=== PATIENT | female | born 1960 | race Caucasian/White ===

== ENCOUNTER 2017-09-10 07:14 | Observation (INO) | payer MEDICAID, MEDICARE ==
[~2017-09-10] VITALS: Ht 172.7 cm; Wt 127.3 kg
[~2017-09-10 07:14] MED LIST: AMLO10TA2 PO; BUPR200T PO; CARB200T4 PO; CLON0.5T20 PO; FLUO20TA25 PO; VALS320T2 PO
[2017-09-10 08:13] LABS: BASOPHILS # (AUTO) 0.03 x10^3/uL (0-0.1); BASOPHILS % (AUTO) 0 % (0-1); EOSINOPHILS # (AUTO) 0.11 x10^3/uL (0-0.4); EOSINOPHILS % (AUTO) 1 % (1-7); LYMPHOCYTES # (AUTO) 0.48 x10^3/uL (1-3.4); LYMPHOCYTES % (AUTO) 5 % (22-44); MD NO; MEAN CORPUSCULAR HEMOGLOBIN 33.7 pg (27.0-34.8); MEAN CORPUSCULAR HGB CONC 33.8 g/dL (32.4-35.8); MEAN CORPUSCULAR VOLUME 99.6 fL (80-100); MEAN PLATELET VOLUME 7.8 fL (7.4-10.4); MONOCYTES # (AUTO) 0.52 x10^3/uL (0.2-0.8); MONOCYTES % (AUTO) 5 % (2-9); NEUTROPHILS % (AUTO) 88 % (42-75); PLATELET COUNT 332 x10^3/uL (130-400); RED BLOOD COUNT 4.36 x10^6/uL (3.82-5.3); RED CELL DISTRIBUTION WIDTH 12.8 % (9.6-15.2)
[2017-09-10 08:23] LABS: ALBUMIN 3.2 g/dL (3.4-5.0); ANION GAP 8 mmol/L (5-15); CALCIUM 8.2 mg/dL (8.5-10.1); CHLORIDE 108 mmol/L (98-107); CREATININE 0.76 mg/dL (0.55-1.02)
[2017-09-10 08:27] LABS: TROPONIN I < 0.015 ng/mL (0.000-0.045)
[2017-09-10] MEDS ORDERED: KETOROLAC 30 MG/1 ML IVPush ONE (08:30)
[2017-09-10] MEDS ORDERED: KETOROLAC 30 MG/1 ML ONE (08:46)
[2017-09-10] MEDS ORDERED: morphine SULFATE 10 MG/ML, 1ML IVPush ONE (09:00)
[2017-09-10] MEDS ORDERED: ONDANSETRON 2MG/ML, 2ML IVPush ONE (09:00)
[2017-09-10] MEDS ORDERED: ONDANSETRON 2MG/ML, 2ML ONE (09:12)
[2017-09-10] MEDS ORDERED: morphine SULFATE 10 MG/ML, 1ML ONE (09:15)
[2017-09-10] MEDS ORDERED: OMNIPAQUE 350 MG/ML, 150 ML BOTTLE ONE (09:48)
[2017-09-10] MEDS ORDERED: PROMETHAZINE 25 MG/ML, 1ML IM ONE (10:30)
[2017-09-10] MEDS ORDERED: ASPIRIN 325 MG TABLET PO ONE (10:30)
[2017-09-10] MEDS ORDERED: ASPIRIN 325 MG TABLET EC PO ONE (10:30)
[2017-09-10] MEDS ORDERED: PROMETHAZINE 25 MG/ML, 1ML ONE (10:54)
[2017-09-10] MEDS ORDERED: ASPIRIN 325 MG TABLET ONE (10:54)
[2017-09-10 11:43] VITALS: BP 124/82
[2017-09-10] MEDS ORDERED: POLYETHYLENE GLYCOL 17 GM PACKET PO PRN (12:00)
[2017-09-10] MEDS ORDERED: ENALAPRILAT 1.25 MG/ML, 2ML IVPush PRN (12:00)
[2017-09-10] MEDS: [UNRECOGNIZED DRUG - REMARK] MC SCH ×2 (12:00→14:43)
[2017-09-10] MEDS ORDERED: BISACODYL 10 MG SUPP PR PRN (12:00)
[2017-09-10] MEDS ORDERED: ONDANSETRON 2MG/ML, 2ML IVPush PRN (12:00)
[2017-09-10] MEDS ORDERED: TEMPLATE NON-FORMULARY MED. (Clonazepam** 0.5 MG) PO SCH (12:00)
[2017-09-10] MEDS ORDERED: NITROGLYCERIN 0.4 MG BOTTLE (25 TABS) SL PRN (12:00)
[2017-09-10] MEDS ORDERED: DOCUSATE 100 MG CAPSULE PO PRN (12:00)
[2017-09-10] MEDS ORDERED: ACETAMINOPHEN 325 MG TABLET PO PRN (12:00)
[2017-09-10] MEDS ORDERED: FLUT12AE INH (12:10)
[2017-09-10] MEDS ORDERED: FLUO60TA PO (12:10)
[2017-09-10] MEDS ORDERED: ALBU18HF INH (12:10)
[2017-09-10] MEDS ORDERED: CLON-364 PO (12:16)
[2017-09-10] MEDS: SODIUM CHLORIDE 0.9% 1,000 ML IV SCH ×2 (13:24→23:11)
[2017-09-10] MEDS: ENOXAPARIN 40 MG/0.4 ML SQ SCH (13:25)
[2017-09-10] MEDS: KETOROLAC 30 MG/1 ML IVPush PRN ×2 (13:25→18:24)
[2017-09-10] MEDS ORDERED: FLUOXETINE HCL 20 MG CAPSULE PO ONE (13:30)
[2017-09-10] MEDS ORDERED: CARBAMAZEPINE 200 MG TABLET PO ONE (13:30)
[2017-09-10] MEDS ORDERED: FLUTICASONE FUROATE 100MCG/INH INH PRN (13:30)
[2017-09-10] MEDS ORDERED: ALBUTEROL SULFATE 2.5 MG/3 ML NPPB PRN (13:30)
[2017-09-10] MEDS ORDERED: BUPROPION 100 MG TABLET PO ONE (13:30)
[2017-09-10 14:23] VITALS: BP 99/63
[2017-09-10 14:43] LABS: TROPONIN I < 0.015 ng/mL (0.000-0.045)
[2017-09-10 15:01] LABS: MICROSCOPIC NOT IND
[2017-09-10 15:10] LABS: RAPID INFLUENZA A Negative (Negative); RAPID INFLUENZA B Negative (Negative)
[2017-09-10 15:15] LABS: CULTURE INDICATED? NO
[2017-09-10 19:52] VITALS: BP 107/72
[2017-09-10] MEDS: CARBAMAZEPINE 200 MG TABLET PO SCH (20:07)
[2017-09-10] MEDS: BUPROPION 100 MG TABLET PO SCH (20:08)
[2017-09-10 20:17] LABS: TROPONIN I < 0.015 ng/mL (0.000-0.045)
[2017-09-11] MEDS: KETOROLAC 30 MG/1 ML IVPush PRN ×2 (01:13→08:25)
[2017-09-11 02:12] VITALS: BP 108/71
[2017-09-11] MEDS: [UNRECOGNIZED DRUG - REMARK] MC SCH ×2 (04:00→11:05)
[2017-09-11 05:09] LABS: BASOPHILS # (AUTO) 0.03 x10^3/uL (0-0.1); BASOPHILS % (AUTO) 1 % (0-1); EOSINOPHILS # (AUTO) 0.24 x10^3/uL (0-0.4); EOSINOPHILS % (AUTO) 6 % (1-7); LYMPHOCYTES # (AUTO) 0.69 x10^3/uL (1-3.4); LYMPHOCYTES % (AUTO) 17 % (22-44); MD NO; MEAN CORPUSCULAR HEMOGLOBIN 33.7 pg (27.0-34.8); MEAN CORPUSCULAR HGB CONC 33.8 g/dL (32.4-35.8); MEAN CORPUSCULAR VOLUME 99.7 fL (80-100); MEAN PLATELET VOLUME 7.7 fL (7.4-10.4); MONOCYTES # (AUTO) 0.63 x10^3/uL (0.2-0.8); MONOCYTES % (AUTO) 15 % (2-9); NEUTROPHILS # (AUTO) 2.57 x10^3/uL (1.8-6.8); NEUTROPHILS % (AUTO) 62 % (42-75); PLATELET COUNT 274 x10^3/uL (130-400); RED BLOOD COUNT 3.87 x10^6/uL (3.82-5.3); RED CELL DISTRIBUTION WIDTH 13.3 % (9.6-15.2)
[2017-09-11 05:19] LABS: ANION GAP 8 mmol/L (5-15); CALCIUM 7.9 mg/dL (8.5-10.1); CHLORIDE 108 mmol/L (98-107)
[2017-09-11 05:22] LABS: CHOL/HDL RATIO 2.1; CHOLESTEROL, TOTAL 167 mg/dL (140-239); CREATININE 0.89 mg/dL (0.55-1.02); HDL CHOL % 47 % (28-40); HDL CHOLESTEROL (DIRECT) 79 mg/dL (40-60); LDL CHOLESTEROL,CALCULATED 65 mg/dL (54-169); LDL/HDL RATIO 0.8 (0.5-3.0); TRIGLYCERIDES 116 mg/dL (50-200); VLDL CHOLESTEROL 23 mg/dL (0-25)
[2017-09-11] MEDS ORDERED: ASPIRIN 325 MG TABLET EC PO SCH (06:00)
[2017-09-11 07:39] VITALS: BP 113/77
[2017-09-11] MEDS: CARBAMAZEPINE 200 MG TABLET PO SCH (08:25)
[2017-09-11] MEDS: BUPROPION 100 MG TABLET PO SCH (08:25)
[2017-09-11] MEDS ORDERED: REGADENOSON 0.4 MG/5 ML SYRINGE ONE (08:47)
[2017-09-11] MEDS ORDERED: FLUOXETINE HCL 20 MG CAPSULE PO SCH (09:00)
[2017-09-11] MEDS ORDERED: VALSARTAN 320 MG TABLET PO SCH (09:00)
[2017-09-11] MEDS ORDERED: AMLODIPINE 5 MG TABLET PO SCH (09:00)
[2017-09-11] MEDS: ENOXAPARIN 40 MG/0.4 ML SQ SCH (12:20)
[2017-09-11] MEDS ORDERED: KETO10TA PO (14:35)
[2017-09-11] MEDS ORDERED: PNEUMOCOCCAL 23 VACCINE IM-VACC ONE (15:30)
[2017-09-11] MEDS ORDERED: FLU VACC QS2017-18 (36MOS+) UP/PF 0.5 ML IM-VACC ONE (15:30)
[2017-09-11 16:33] LABS: CLOSTRIDIUM DIFFICILE ANTIGEN NEGATIVE; CLOSTRIDIUM DIFFICILE TOXIN NEGATIVE (Negative)
== END 2017-09-11 17:22 | disposition home or self-care (01) ==
LOC: ED 10:18 → EDIP 10:23 → INTOOBSV 10:23 → ED 10:37 → 5SO 11:29
PROVIDERS: ADMIT Emergency Medicine; ATTEND Emergency Medicine
DX: I24.9 Acute ischemic heart disease, unspecified (principal); M79.1 Myalgia; R11.2 Nausea with vomiting, unspecified; I11.9 Hypertensive heart disease without heart failure; E44.0 Moderate protein-calorie malnutrition; F15.90 Other stimulant use, unspecified, uncomplicated; F31.4 Bipolar disorder, current episode depressed, severe, without psychotic features; J45.909 Unspecified asthma, uncomplicated; Z83.3 Family history of diabetes mellitus; Z23 Encounter for immunization
CPT/HCPCS: 36415; 71045; 71275; 78452; 80048; 80061; 81003; 82040; 83880; 84484; 85025; 87046; 87324; 87400; 87427; 89055; 90471; 90472; 90686; 90732; 93005; 93017; 96361; 96372; 96374; 96375; 99285; A9502; C9898; G0378; J1650; J1885; J2270; J2405; J2550; J2785; J7030; Q9967

== ENCOUNTER → 2018-12-07 | Outpatient (CLI) | payer MEDICAID, MEDICARE ==
[~2018-12-07] MED LIST changes: +ALBU18HF INH; -AMLO10TA2 PO; +AMLO10TA8 PO; +CLON0.5T11 PO; +FLUO60TA PO; +FLUT12AE INH; +KETO10TA PO
== END | disposition home or self-care (01) ==
LOC: CFH 12:42
PROVIDERS: ATTEND Family Medicine
DX: I88.9 Nonspecific lymphadenitis, unspecified (principal); R51 Headache; I10 Essential (primary) hypertension; J45.998 Other asthma; E78.49 Other hyperlipidemia; M19.90 Unspecified osteoarthritis, unspecified site; G47.33 Obstructive sleep apnea (adult) (pediatric)
CPT/HCPCS: 70553

== ENCOUNTER 2020-07-08 14:14 | Emergency (ER) | payer MEDICARE ==
[~2020-07-08] VITALS: Ht 172.7 cm; Wt 115.7 kg
[~2020-07-08 14:14] MED LIST changes: +AMLO-211 PO; -AMLO10TA8 PO; -BUPR200T PO; +BUPR200T3 PO; +CLON-364 PO; -CLON0.5T11 PO
--- NOTE | 2020-07-08 14:58 | NUR ---
BREAK RN: LAB IN ROOM. NO ACUTE DISTRESS NOTED. VS STABLE. CALL LIGHT IN PLACE. WILL CONTINUE TO MONITOR WHILE PRIMARY RN IS ON BREAK.
[2020-07-08 15:09] LABS: BASOPHILS % (AUTO) 1 % (0-1); EOSINOPHILS % (AUTO) 0 % (1-7); LYMPHOCYTES % (AUTO) 19 % (22-44); MEAN CORPUSCULAR HEMOGLOBIN 33.4 pg (27.0-34.8); MEAN CORPUSCULAR HGB CONC 33.9 g/dL (32.4-35.8); MEAN PLATELET VOLUME 7.7 fL (7.4-10.4); MONOCYTES % (AUTO) 9 % (2-9); NEUTROPHILS % (AUTO) 71 % (42-75); PLATELET COUNT 214 x10^3/uL (130-400); RED BLOOD COUNT 4.59 x10^6/uL (3.82-5.3); RED CELL DISTRIBUTION WIDTH 13.5 % (9.6-15.2)
[2020-07-08 15:11] LABS: MD NO
[2020-07-08 15:22] LABS: ALANINE AMINOTRANSFERASE 13 U/L (12-78); ALBUMIN 3.3 g/dL (3.4-5.0); ANION GAP 5 mmol/L (5-15); CALCIUM 8.8 mg/dL (8.5-10.1); CHLORIDE 110 mmol/L (98-107); CREATININE 0.93 mg/dL (0.55-1.02)
[2020-07-08 15:25] LABS: ALKALINE PHOSPHATASE 90 U/L (45-117); BILIRUBIN,TOTAL 0.3 mg/dL (0.2-1.0)
--- NOTE | 2020-07-08 15:34 | NUR ---
BREAK RN: REPORT GIVEN TO LEE JEREZ
[2020-07-08 15:50] VITALS: BP 142/91
== END 2020-07-08 16:34 | disposition home or self-care (01) ==
LOC: ED 16:25
DX: U07.1 COVID-19 (principal); J06.9 Acute upper respiratory infection, unspecified; R51.9 Headache, unspecified; R06.02 Shortness of breath; R94.31 Abnormal electrocardiogram [ECG] [EKG]; I10 Essential (primary) hypertension; E11.9 Type 2 diabetes mellitus without complications
CPT/HCPCS: 36415; 71045; 80053; 85025; 87635; 93005; 99285

== ENCOUNTER 2020-09-17 21:43 | Emergency (ER) | payer MEDICARE ==
[~2020-09-17] VITALS: Ht 172.7 cm; Wt 110.0 kg
[2020-09-17] MEDS ORDERED: SODIUM CHLORIDE 0.9% 1,000ML IVBOLUS ONE (22:00)
[2020-09-17 22:21] LABS: BASOPHILS % (AUTO) 1 % (0-1); EOSINOPHILS % (AUTO) 2 % (1-7); LYMPHOCYTES % (AUTO) 22 % (22-44); MEAN CORPUSCULAR HEMOGLOBIN 33.4 pg (27.0-34.8); MEAN CORPUSCULAR HGB CONC 33.6 g/dL (32.4-35.8); MEAN PLATELET VOLUME 7.9 fL (7.4-10.4); MONOCYTES % (AUTO) 7 % (2-9); NEUTROPHILS % (AUTO) 68 % (42-75); PLATELET COUNT 248 x10^3/uL (130-400); RED BLOOD COUNT 4.74 x10^6/uL (3.82-5.3); RED CELL DISTRIBUTION WIDTH 13.3 % (9.6-15.2)
[2020-09-17 22:22] LABS: MD NO
[2020-09-17 22:27] LABS: ALBUMIN 2.5 g/dL (3.4-5.0); ANION GAP 3 mmol/L (5-15); CALCIUM 7.8 mg/dL (8.5-10.1); CHLORIDE 107 mmol/L (98-107)
[2020-09-17 22:31] LABS: TROPONIN I < 0.015 ng/mL (0.000-0.045)
[2020-09-17 22:34] VITALS: BP 116/70
--- NOTE | 2020-09-17 22:35 | NUR ---
PT RESTING IN BED, STATES SHE FEELS BETTER AT THIS TIME
[2020-09-17] MEDS ORDERED: ACETAMINOPHEN 500 MG TABLET ONE (22:48)
[2020-09-17] MEDS ORDERED: ACETAMINOPHEN 500 MG TABLET PO ONE (23:00)
== END 2020-09-17 23:16 | disposition home or self-care (01) ==
LOC: ED 22:40
DX: I95.1 Orthostatic hypotension (principal); R07.89 Other chest pain; R42 Dizziness and giddiness; I10 Essential (primary) hypertension; E11.9 Type 2 diabetes mellitus without complications
CPT/HCPCS: 36415; 71045; 80048; 82040; 84484; 85025; 93005; 96360; 99285; J7030